=== PATIENT | female | born 1940 | race Caucasian/White ===

== ENCOUNTER 2017-06-09 14:52 | Emergency (ER) | payer OTHER, MEDICARE ==
[2017-06-09 16:01] LABS: Absolute Lymphocytes (CBC) 0.5 K/uL (0.7-4.9); Absolute Monocytes 0.1 K/uL (0.1-1.3); Absolute Neutrophil 3.3 K/uL (1.8-8.0); Basophils % 0.1 % (0-1.3); Eosinophils % 1.7 % (0-4.4); Hematocrit 44.8 % (36.0-45.0); Lymphocytes % 13.3 % (15.3-44.8); MCH 31.7 pg (27.0-35.0); MCV 94.6 fL (80-100); MPV 10.2 fL (7.6-11.3); RBC Red Blood Cell Count 4.73 M/uL (3.86-4.86)
--- NOTE | 2017-06-09 16:01 | RAD REPORT ---
EXAM DESCRIPTION: RAD - Chest Single View - 06/09/2017 3:52 pm CLINICAL HISTORY: Chest pain. COMPARISON: 12/09/2013 FINDINGS: Portable technique limits examination quality. The lungs are grossly clear. The heart is upper limit of normal in size. No displaced fractures. IMPRESSION: No acute intrathoracic process suspected.
[2017-06-09 16:13] LABS: Protime INR 0.99
[2017-06-09 16:18] LABS: Potassium 4.2 mEq/L (3.6-5.0)
[2017-06-09 16:24] LABS: Albumin 4.1 g/dL (3.2-5.5); Bilirubin Direct 0.1 mg/dL (0-0.2); Bilirubin Total 0.7 mg/dL (0.3-1.2); Magnesium 1.9 mg/dL (1.8-2.5); Protein, Total 8.3 g/dL (6.0-8.3)
[2017-06-09 16:54] LABS: Thyroid Stimulating Hormone 1.56 uIU/mL (0.34-5.60)
--- NOTE | 2017-06-09 17:25 | EDPHYS ---
Physician Documentation [facility] Name: Radha Villegas Age: 76 yrs Sex: Female : 1940 Arrival Date: 06/09/2017 Time: 14:54 Bed 3 Private MD: ED Physician Yash Mcfarlane HPI: 06/09 16:19 This 76 yrs old Female presents to ER via Ambulatory with complaints of jr8 Bradycardia. 16:19 Patient was being seen by dentist today for chipped tooth. Noted that HR was in the jr8 30s. Was told to f/u with PCP. Had called her physician who told her to go to ED. Patient asymptomatic. Denies n/v, dizziness, fatigue, shortness of breath, chest pain, exertional dyspnea, near syncope, or syncope. Onset: The symptoms/episode began/occurred at an unknown time. Severity of symptoms: At their worst the symptoms were very mild in the emergency department the symptoms are unchanged. It is unknown whether or not the patient has had similar symptoms in the past. The patient has not recently seen a physician. Historical: - Allergies: 14:57 silver; tw2 - Home Meds: 14:57 Bystolic 10 mg oral tab 1 tab once daily [Active]; Xeljanz 5 mg oral tab 1 tab [Active];tw2 15:00 aspirin 81 mg Oral chew 1 tab once daily [Active]; Vitamin D Oral [Active]; Vitamin tw2 B-12 2,000 mcg Oral TbER [Active]; - PMHx: 14:57 anal cancer; Hypertension; tw2 - PSHx: 14:57 None; tw2 - Immunization history:: Adult Immunizations up to date. - Social history:: Smoking status: Patient/guardian denies using tobacco. ROS: 16:19 Eyes: Negative for injury, pain, redness, and discharge, ENT: Negative for injury, jr8 pain, and discharge, Neck: Negative for injury, pain, and swelling, Cardiovascular: Negative for chest pain, palpitations, and edema, Respiratory: Negative for shortness of breath, cough, wheezing, and pleuritic chest pain, Abdomen/GI: Negative for abdominal pain, nausea, vomiting, diarrhea, and constipation, Back: Negative for injury and pain, MS/Extremity: Negative for injury and deformity, Skin: Negative for injury, rash, and discoloration, Neuro: Negative for headache, weakness, numbness, tingling, and seizure. Exam: 16:19 Eyes: Pupils equal round and reactive to light, extra-ocular motions intact. Lids and jr8 lashes normal. Conjunctiva and sclera are non-icteric and not injected. Cornea within normal limits. Periorbital areas with no swelling, redness, or edema. ENT: Nares patent. No nasal discharge, no septal abnormalities noted. Tympanic membranes are normal and external auditory canals are clear. Oropharynx with no redness, swelling, or masses, exudates, or evidence of obstruction, uvula midline. Mucous membranes moist. Neck: Trachea midline, no thyromegaly or masses palpated, and no cervical lymphadenopathy. Supple, full range of motion without nuchal rigidity, or vertebral point tenderness. No Meningismus. Chest/axilla: Normal chest wall appearance and motion. Nontender with no deformity. No lesions are appreciated. Respiratory: Lungs have equal breath sounds bilaterally, clear to auscultation and percussion. No rales, rhonchi or wheezes noted. No increased work of breathing, no retractions or nasal flaring. Abdomen/GI: Soft, non-tender, with normal bowel sounds. No distension or tympany. No guarding or rebound. No evidence of tenderness throughout. Back: No spinal tenderness. No costovertebral tenderness. Full range of motion. Skin: Warm, dry with normal turgor. Normal color with no rashes, no lesions, and no evidence of cellulitis. MS/ Extremity: Pulses equal, no cyanosis. Neurovascular intact. Full, normal range of motion. Neuro: Awake and alert, GCS 15, oriented to person, place, time, and situation. Cranial nerves II-XII grossly intact. Motor strength 5/5 in all extremities. Sensory grossly intact. Cerebellar exam normal. Normal gait. 16:19 Cardiovascular: Rate: bradycardic, Rhythm: regular, Pulses: Pulses are 2+ in right radial artery, right dorsalis pedis artery, left radial artery and left dorsalis pedis artery. Heart sounds: normal, normal S1and S2, no S3 or S4, no murmur, no rub, no gallop, Edema: is not appreciated, JVD: is not appreciated. Vital Signs: 14:55 BP 151 / 86; Pulse 32; Resp 16; Temp 97.5(TE); Pulse Ox 98% on R/A; Weight 50.8 kg (R); tw2 Height 5 ft. 4 in. (162.56 cm); Pain 0/10; 16:01 BP 127 / 72; Pulse 52; Resp 16; Pulse Ox 99% on R/A; aj 17:16 BP 162 / 79; Pulse 58; Resp 18; Pulse Ox 100% on R/A; aj 14:55 Body Mass Index 19.22 (50.80 kg, 162.56 cm) tw2 MDM: 15:07 Patient medically screened. jr8 17:22 Data reviewed: vital signs, nurses notes, lab test result(s), EKG, radiologic studies, jr8 plain films, and as a result, I will discharge patient. Data interpreted: Pulse oximetry: on room air is 100 %. Interpretation: normal. Counseling: I had a detailed discussion with the patient and/or guardian regarding: the historical points, exam findings, and any diagnostic results supporting the discharge/admit diagnosis, lab results, radiology results, the need for outpatient follow up, a agricultural research technician, to return to the emergency department if symptoms worsen or persist or if there are any questions or concerns that arise at home. ED course: Patient remains asymptomatic. Will refer to cardiology for further evaluation of bigeminy. If she becomes symptomatic to come back to ED for evaluation . 17:26 ED course: Patient was suppose to start on Trazodone for sleep. Explained to patient jr8 that she should NOT start that medicine until cleared by agricultural research technician due to its potential side effects . 06/09 15:28 Order name: Basic Metabolic Panel; Complete Time: 17:02 06/09 15:28 Order name: BNP; Complete Time: 16:28 06/09 15:28 Order name: CBC with Diff; Complete Time: 16:13 06/09 15:28 Order name: LFT's; Complete Time: 17:02 06/09 15:28 Order name: Magnesium; Complete Time: 17:02 06/09 15:28 Order name: PT-INR; Complete Time: 16:21 06/09 15:28 Order name: Ptt, Activated; Complete Time: 16:21 06/09 15:28 Order name: Troponin (emerg Dept Use Only); Complete Time: 16:23 06/09 15:28 Order name: XRAY Chest (1 view); Complete Time: 16:13 06/09 15:28 Order name: EKG; Complete Time: 15:28 [facility] 06/09 15:28 Order name: TSH; Complete Time: 17:06/09 15:28 Order name: T4 Free; Complete Time: 17: 06/09 17:15 Order name: EKG Electrocardiogram [facility] 06/09 17:45 Order name: Urine Dipstick--Ancillary (enter results) 06/09 15:28 Order name: Cardiac monitoring; Complete Time: 17:18 [facility] 06/09 15:28 Order name: EKG - Nurse/Tech; Complete Time: 17: 06/09 15:28 Order name: IV Saline Lock; Complete Time: 17:18 06/09 15:28 Order name: Labs collected and sent; Complete Time: 17: [facility] 06/09 15:28 Order name: O2 Per Protocol; Complete Time: 17: 06/09 15:28 Order name: O2 Sat Monitoring; Complete Time: 17:06/09 15:28 Order name: Urine Dipstick-Ancillary (obtain specimen); Complete Time: 17:18 Administered Medications: No medications were administered Disposition: 18:10 Co-signature as Attending Physician, Yash Mcfarlane MD. rn Disposition: 06/09/17 17:24 Discharged to Home. Impression: Cardiac arrhythmia, unspecified - Asymptomatic Bigeminy . - Condition is Stable. - Discharge Instructions: Bradycardia, Palpitations. - Medication Reconciliation Form, Thank You Letter, Antibiotic Education, Prescription Opioid Use form. - Follow up: Georges Rios MD; When: 2 - 3 days; Reason: Recheck today's complaints, Continuance of care, Re-evaluation by your physician. - Problem is new. - Symptoms have improved. Signatures: Dispatcher [employer] EDTaina Zhong, RN Yash Benjamin MD MD rn Roszak, Josh, PA PA jr8 Jodie Paulson Tara, RN RN tw2
--- NOTE | 2017-06-09 17:25 | ER ---
Nurse's Notes [facility] Name: Radha Villegas Age: 76 yrs Sex: Female : 1940 Arrival Date: 06/09/2017 Time: 14:54 Bed 3 Private MD: Diagnosis: Cardiac arrhythmia, unspecified-Asymptomatic Bigeminy Presentation: 06/09 14:54 Presenting complaint: Patient states: i went to the dentist this morning and he said my tw2 pulse was in the 30's, i dont feel bad. Transition of care: patient was not received from another setting of care. Onset of symptoms was June 09, 2017. Initial Sepsis Screen: Does the patient meet any 2 criteria? No. Patient's initial sepsis screen is negative. Does the patient have a suspected source of infection? No. Patient's initial sepsis screen is negative. 14:54 Method Of Arrival: Ambulatory tw2 14:54 Acuity: JAYSHREE 2 iw 17:33 Care prior to arrival: None. aj Historical: - Allergies: 14:57 silver; tw2 - Home Meds: 14:57 Bystolic 10 mg oral tab 1 tab once daily [Active]; Xeljanz 5 mg oral tab 1 tab [Active];tw2 15:00 aspirin 81 mg Oral chew 1 tab once daily [Active]; Vitamin D Oral [Active]; Vitamin tw2 B-12 2,000 mcg Oral TbER [Active]; - PMHx: 14:57 anal cancer; Hypertension; tw2 - PSHx: 14:57 None; tw2 - Immunization history:: Adult Immunizations up to date. - Social history:: Smoking status: Patient/guardian denies using tobacco. Screenin:03 Abuse screen: Denies threats or abuse. Denies injuries from another. Nutritional aj screening: No deficits noted. Tuberculosis screening: No symptoms or risk factors identified. Fall Risk None identified. Assessment: 16:01 General: Appears in no apparent distress. comfortable, Behavior is calm, cooperative, aj appropriate for age. Pain: Denies pain. Neuro: Level of Consciousness is awake, alert, obeys commands, Oriented to person, place, time, situation, Appropriate for age. Cardiovascular: Denies chest pain, Capillary refill < 3 seconds in bilateral fingers Patient's skin is warm and dry. Rhythm is sinus bradycardia. Respiratory: Airway is patent Respiratory effort is even, unlabored, Respiratory pattern is regular, symmetrical. Derm: Skin is intact, is healthy with good turgor, Skin is pink, warm \T\ dry. normal. 17:17 Reassessment: Patient appears in no apparent distress at this time. No changes from aj previously documented assessment. Patient and/or family updated on plan of care and expected duration. Pain level reassessed. Patient is alert, oriented x 3, equal unlabored respirations, skin warm/dry/pink. Patient denies pain at this time. Vital Signs: 14:55 BP 151 / 86; Pulse 32; Resp 16; Temp 97.5(TE); Pulse Ox 98% on R/A; Weight 50.8 kg (R); tw2 Height 5 ft. 4 in. (162.56 cm); Pain 0/10; 16:01 BP 127 / 72; Pulse 52; Resp 16; Pulse Ox 99% on R/A; aj 17:16 BP 162 / 79; Pulse 58; Resp 18; Pulse Ox 100% on R/A; aj 14:55 Body Mass Index 19.22 (50.80 kg, 162.56 cm) tw2 ED Course: 14:54 Patient arrived in ED. tw3 14:55 Triage completed. tw2 14:56 Arm band placed on. tw2 15:07 Iggy Ramirez PA is PHCP. jr8 15:07 Yash Mcfarlane MD is Attending Physician. jr8 15:32 EKG done, by technical services librarian. at1 15:37 Taina Adams, RN is Primary Nurse. aj 15:40 Inserted saline lock: 20 gauge in right antecubital area, using aseptic technique. aj Blood collected. 15:50 X-ray completed. Portable x-ray completed in exam room. Patient tolerated procedure bb2 well. 15:51 XRAY Chest (1 view) In Process Unspecified. EDMS 17:23 Georges Rios MD is Referral Physician. jr8 17:30 Patient has correct armband on for positive identification. aj 17:30 No provider procedures requiring assistance completed. aj 17:31 IV discontinued, intact, bleeding controlled, No redness/swelling at site. Pressure aj dressing applied. 17:43 Primary Nurse role handed off by Taina Adams, RN ag Administered Medications: No medications were administered Outcome: 17:24 Discharge ordered by . jr8 17:31 Discharged to home ambulatory. aj 17:31 Condition: good 17:31 Discharge instructions given to patient, Instructed on discharge instructions, follow up and referral plans. Demonstrated understanding of instructions, follow-up care. 17:33 Patient left the ED. aj 17:45 Patient left the ED. ag Signatures: Dispatcher [employer] EDTaina Zhong, RN RN Princess Trinidad RN RN Iggy Alcala PA PA jr8 Taina calvin, employment counselor EKG Tat1 Jodie Paulson Tara, RN RN tw2 Stiven, Araceli tw3 Crys Bolden bb2 Corrections: (The following items were deleted from the chart) 15:14 14:54 Acuity: JAYSHREE 3 tw2 iw
[2017-06-09 17:38] VITALS: TEMP 97.5
[2017-06-09 17:41] VITALS: BP 162/79; O2SAT 100
[2017-06-09 18:07] LABS: Urine Blood TRACE (NEG); Urine Glucose NEGATIVE (NEG); Urine Protein NEGATIVE (NEG)
--- NOTE | 2017-06-10 06:56 | EKG ---
Test Date: 2017-06-09 Test Time: 15:23:17 Supervisor Graphite: SANGITA MEASUREMENT RESULTS: Intervals: Rate: 63 AZ: 110 QRSD: 82 QT: 418 QTc: 427 [place]: P: 64 AZ: 110 QRS: 99 T: 38 INTERPRETIVE STATEMENTS: Sinus rhythm with frequent premature ventricular complexes in a pattern of bigeminy Possible Left atrial enlargement Rightward axis Borderline ECG Compared to ECG 06/09/2017 15:03:29 Ventricular premature complex(es) now present Sinus bradycardia no longer present Atrial premature complex(es) no longer present Electronically Signed On 06-10-17 06:55:13 CDT by Georges Rios
--- NOTE | 2017-06-10 06:58 | EKG ---
Test Date: 2017-06-09 Test Time: 15:03:29 Opener Tender: MARI MEASUREMENT RESULTS: Intervals: Rate: 53 UT: 138 QRSD: 82 QT: 428 QTc: 401 [place]: P: 68 UT: 138 QRS: 69 T: 37 INTERPRETIVE STATEMENTS: Sinus bradycardia with premature ventricular complexes Possible Left atrial enlargement Borderline ECG Compared to ECG 12/08/2013 18:50:35 Sinus rhythm no longer present Electronically Signed On 06-10-17 06:57:24 CDT by Georges Rios
== END 2017-06-09 17:45 | disposition home or self-care (01) ==
LOC: ER 14:52
DX: I49.8 Other specified cardiac arrhythmias (principal); I10 Essential (primary) hypertension; Z85.048 Personal history of other malignant neoplasm of rectum, rectosigmoid junction, and anus; Z79.82 Long term (current) use of aspirin; Z91.048 Other nonmedicinal substance allergy status
CPT/HCPCS: 36415; 71045; 80048; 80076; 81003; 83735; 83880; 84439; 84443; 84484; 85025; 85610; 85730; 93005; 99284

== ENCOUNTER 2017-10-28 06:56 | Day surgery (SDC) | payer OTHER, MEDICARE ==
[2017-10-28] MEDS ORDERED: Ringers Lactate 1,000 ML IV ONE (07:29)
--- OUTSIDE RECORDS SUMMARY | 2017-10-28 08:24 | XMS REPORT | Clinical Summary ---
:1940 Author Organization [facility] Address [address] [place] [address] Care Team Providers Name Role Phone Barbara Montes MD Primary Care Provider Allergies Active Allergy Reactions Severity Noted Date Comments Adhesive 11/01/2015 Belladonna 11/01/2015 Belladonna Alkaloids 04/18/2015 Neuromuscular Blockers, 11/01/2015 Steroidal Mirtazapine Other (See Comments) Low 08/12/2017 Unable to sleep, total insomnia. Infliximab Other (See Comments) 04/18/2015 Other reaction(s): Other (See Comments) Possible cause of erythema mulitforme Possible cause of erythema mulitforme Current Medications Prescription Sig. Disp. Refills Start Date End Date Status clonIDINE 3 01/22/2015 Active (CATAPRES) 0.1 MG tablet BYSTOLIC 10 mg 6 03/29/2015 Active tablet melatonin 5 mg Take by mouth. Active tablet tofacitinib Take by mouth. Active (XELJANZ) 5 mg tablet cyanocobalamin, Take by mouth. Active vitamin B-12, 2,500 mcg tablet vitamin D3-folic Take by mouth. Active acid 500 unit- 1 mg tablet aspirin (ECOTRIN) Take 81 mg by Active 81 MG enteric mouth daily. coated tablet traZODone 1-2 po hs prn 60 tablet 1 06/10/2017 Active (DESYREL) 50 MG insomnia tablet mirtazapine 1-2 po hs prn 30 tablet 0 07/02/2017 Active (REMERON) 15 MG insomnia. tabletIndications: Chronic insomnia LORAZepam (ATIVAN) TK 1 T PO QD 2 06/23/2017 Active 0.5 MG tablet PRA oseltamivir Take 1 capsule 10 capsule 0 03/19/2017 03/24/2017 (TAMIFLU) 75 MG (75 mg total) capsuleIndications by mouth 2 : Type A influenza (two) times a day for 5 days. traZODone Take 1 tablet 30 tablet 3 03/19/2017 04/18/2017 (DESYREL) 50 MG (50 mg total) tabletIndications: by mouth Chronic insomnia nightly for 30 days. benzonatate Take 1 capsule 50 capsule 1 03/19/2017 03/29/2017 (TESSALON) 200 MG (200 mg total) capsuleIndications by mouth 3 : Type A influenza (three) times a day as needed for cough for up to 10 days. zolpidem (AMBIEN) Take 5 mg by 08/12/2017 Discontinued 5 MG tablet mouth nightly as needed for sleep. traZODone Take 50 mg by 07/23/2017 Discontinued (DESYREL) 50 MG mouth nightly. tablet traZODone Take 2 tablets 60 tablet 2 07/23/2017 08/22/2017 (DESYREL) 150 MG (300 mg total) tablet by mouth nightly for 30 days. zolpidem (AMBIEN) Take 1 tablet 30 tablet 5 08/12/2017 09/11/2017 5 MG (5 mg total) tabletIndications: by mouth Chronic insomnia, nightly as Sleep deprivation needed for sleep for up to 30 days. Active Problems Problem Noted Date Primary malignant neoplasm of anus 06/18/2015 Rheumatoid arthritis 06/18/2015 Insomnia 04/20/2015 Recurrent anxiety 04/18/2015 Chronic anxiety 04/18/2015 Hypertensive disorder 04/18/2015 Irregular heart beat 04/18/2015 Acute pharyngitis 04/18/2015 Mycoplasma pneumonia 04/18/2015 Influenza with respiratory manifestation other than pneumonia 04/18/2015 Palpitations 04/18/2015 Abnormal mammogram 04/18/2015 Atrophic vaginitis 04/24/2011 Malignant neoplasm of gastrointestinal tract 04/24/2011 Encounter for screening mammogram for malignant neoplasm of breast 03/31/2011 Encounters Date Type Specialty Care Team Description 09/21/2017 Telephone Neurosurgery Kristyn Ambrose MA 09/18/2017 Telephone Neurosurgery Kristyn Ambrose MA 09/16/2017 Orders Only Family Medicine Barbara Montes MD cancer screening using DNA-based stool test (Primary Dx) 09/10/2017 Telephone Family Medicine Barbara Montes MD 09/10/2017 Orders Only Internal Medicine Sofia Aguirre MA History of anal cancer 09/02/2017 Telephone Family Barbara Salgado MD 08/26/2017 Office Visit Internal Medicine Barbara Montes Annual physical exam MD Tong (Primary Dx) 08/26/2017 Orders Only Family Medicine Barbara Montes Encounter for long -term (current) use of medications (Primary Dx); MD Marshal Fortune arthritis mult site w involv of organs and systems 08/12/2017 Office Visit Internal Medicine Barbara Montes Chronic insomnia (Primary Dx); MD Tong Sleep deprivation; History of anal cancer 08/03/2017 Telephone Internal Medicine Barbara Montes MD 07/23/2017 Refill Internal Medicine Akiko Corey, HOME AID 07/09/2017 Orders Only Internal Medicine Bakari Sheridan MD 07/02/2017 Office Visit Internal Medicine Barbara Montes Chronic insomnia (Primary Dx); MD Tong Bradykinesia; Weight loss 07/02/2017 Telephone Internal Medicine Barbara Montes MD 07/01/2017 Telephone Internal Medicine Barbara Montes MD 06/09/2017 Telephone Family Medicine David Jimenez, HOME AID 06/09/2017 Refill Internal Medicine Barbara Montes MD 06/08/2017 Office Visit Internal Medicine Barbara Montes Chronic insomnia (Primary Dx); MD Tong Unintended weight loss; Diarrhea, unspecified type 03/20/2017 Telephone Family Barbara Salgado MD 03/19/2017 Office Visit Internal Medicine Barbara Montes Type A influenza (Primary Dx); MD Tong Fever, unspecified fever cause; Chronic insomnia 03/19/2017 Telephone Family Medicine Barbara Montes MD after 10/27/2016 Immunizations Name Dates Previously Given Next Due FLUZONE HIGH-DOSE PF 12/05/2016, 11/23/2014, 12/17/2012 Pneumococcal Conjugate 13-Valent 01/01/2015 Family History Medical History Relation Name Comments Atrial fibrillation Father COPD Mother of lung cancer Lung cancer Mother Hypertension Sister Relation Name Status Comments Father Mother Sister Social History Tobacco Use Types Packs/Day Years Used Date Former Smoker Smokeless Tobacco: Never Used Tobacco Cessation: Counseling Given: No Alcohol Use Drinks/Week oz/Week Comments Yes Sex Assigned at Date Recorded Not on file Last Filed Vital Signs Vital Sign Reading Time Taken Blood Pressure 140/57 08/26/2017 3:11 PM CDT Pulse 45 08/26/2017 3:11 PM CDT Temperature 36.5 C (97.7 F) 08/26/2017 3:11 PM CDT Respiratory Rate 18 08/26/2017 3:11 PM CDT Oxygen Saturation 99% 08/26/2017 3:11 PM CDT Inhaled Oxygen Concentration - - Weight 50.8 kg (112 lb) 08/26/2017 3:11 PM CDT Height 160 cm (5' 3") 08/26/2017 3:11 PM CDT Body Mass Index 19.84 08/26/2017 3:11 PM CDT Plan of Treatment Health Maintenance Due Date Last Done Comments ZOSTER VACCINE 2002 PNEUMOCOCCAL POLYSACCHARIDE 06/26/2007 VACCINE AGE 65 AND OVER BREAST CANCER SCREENING 04/17/2017 04/18/2015 INFLUENZA VACCINE 09/16/2017 12/05/2016, 11/23/2014, 12/17/2012 SHINGRIX VACCINE (#1) 08/26/2018 Postponed from 1992 (Patient Ill Today) COLON CANCER SCREENING 09/03/2025 09/04/2015, 02/16/2002 PNEUMOCOCCAL-13 Completed 01/01/2015 Procedures Procedure Name Priority Date/Time Associated Diagnosis Comments IP CONSULT TO Routine 07/09/2017 12:00 RHEUMATOLOGY AM CDT CLOSTRIDIUM DIFFICILE Routine 06/16/2017 2:32 Diarrhea, Results for this TOXIN PM CDT unspecified type procedure are in the results section. STOOL CULTURE Routine 06/16/2017 2:32 Diarrhea, Results for this PM CDT unspecified type procedure are in the results section. OVA & PARASITES, Routine 06/16/2017 2:32 Diarrhea, Results for this CONCENTRATED PM CDT unspecified type procedure are in EXAMINATION the results section. FECAL LEUKOCYTES Routine 06/16/2017 2:32 Diarrhea, Results for this SMEAR PM CDT unspecified type procedure are in the results section. ECG 12-LEAD Routine 06/09/2017 12:00 AM CDT XR CHEST 1 VW Routine 06/09/2017 12:00 AM CDT POCT INFLUENZA A/B Routine 03/19/2017 3:19 Fever, unspecified Results for this PM AGILE SCRUM COACH fever cause procedure are in the results section. after 10/27/2016 Results Consult Rheumatology (07/09/2017) Narrative Performed At Ova & parasites, concentrated examination (06/16/2017 2:32 PM) Ova & parasites concentrated No ova, cysts, or parasites seen. [facility] exam . One negative specimen does not rule out the possibility of a parasitic infection. Comment: These results were obtained using wet preparation(s) and trichrome stained smear. This test does not include testing for Cryptosporidium parvum, Cyclospora, or Microsporidia. Specimen Stool Narrative Performed At Performed at:[address] [place], [place] [id number] Court Interpreter: Rufino Benton MD, Phone:[phone] Performing Organization Address [facility] [place] [facility] Fecal leukocytes smear (06/16/2017 2:32 PM) Fecal leukocytes No white blood cells seen. None Seen [facility] Specimen Stool Narrative Performed At Performed at:[address] [place], [place] [id number] [address] Interpreter: Rufino Benton MD, Phone:[phone] Performing Organization Address [facility] [place] Phone Number [facility] C difficile toxin (06/16/2017 2:32 PM) C difficile toxin gene NARAYAN Negative Negative [facility] Specimen Stool Narrative Performed At Performed at:[address] [place], [place] [id number] Interpreter: Rufino Benton MD, Phone:[phone] Performing Organization Address [facility] [place] Phone Number [facility] Stool culture (06/16/2017 2:32 PM) Salmonella/shigella culture No Salmonella or Shigella [facility] isolate recovered. Campylobacter culture isolate No Campylobacter species [facility] isolated. Specimen Stool Narrative Performed At Performed at:[address] [place], [place] [id number] [address] Interpreter: Rufino Benton MD, Phone:[phone] Performing Organization Address City/State/Zipcode Phone Number [facility] XR Chest 1 Vw (06/09/2017) Narrative Performed At ECG 12 lead (06/09/2017) Narrative Performed At POC Influenza A/B (03/19/2017 3:19 PM) Rapid Influenza A Ag + Rapid Influenza B Ag - Specimen Swab after 10/27/2016 Insurance Payer Benefit Plan / Group Subscriber ID Type Phone Address MEDICARE MEDICARE PART A AND B xxxxxxxxxx Medicare [place], [place] AARP AARP SUPPLEMENT xxxxxxxxx-xx Commercial [phone] [facility] [address] [place] [address]
[2017-10-28] MEDS ORDERED: PROPOFOL 200 MG/20 ML VIAL IV ONE (09:17)
[2017-10-28] MEDS ORDERED: LIDOCAINE 1% MPF 2 ML AMPULE ONE (09:17)
--- NOTE | 2017-10-28 09:41 | ENDO RPT ---
[address], [address] COLONOSCOPY PROCEDURE REPORT EXAM DATE: 10/28/2017 PATIENT NAME: Radha Villegas MR #: [id number] BIRTHDATE: 1940 ATTENDING: Alberto Baez Dr STATUS: outpatient PUBLIC HEALTH ANALYST: Anne-Marie Morton and Yolette Child RN INDICATIONS: The patient is a 77 yr old Female here for a colonoscopy due to positive Cologuard, change in bowel habits (thought due to medication side effect) and history of rectal cancer PROCEDURE PERFORMED: Colonoscopy MEDICATIONS: Per Anesthesia. ESTIMATED BLOOD LOSS: None CONSENT: The patient understands the risks and benefits of the procedure and understands that these risks include, but are not limited to: sedation, allergic reaction, infection, perforation and/or bleeding. Alternative means of evaluation and treatment include, among others: physical exam, x-rays, and/or surgical intervention. The patient elects to proceed with this endoscopic procedure. DESCRIPTION OF PROCEDURE: During intra-op preparation period all mechanical medical equipment was checked for proper function. Hand hygiene and appropriate measures for infection prevention was taken. Procedure, possible complications, alternatives including, but not limited to possibility of bleeding, perforation, tear, infection, sepsis, need for surgery, need for blood transfusion, were explained to the patient. After the risks, benefits and alternatives of the procedure were thoroughly explained, Informed consent was verified, confirmed and timeout was successfully executed by the treatment team. The patient was placed in the left lateral position. A digital rectal exam was performed and revealed external hemorrhoids and A digital rectal exam was performed and revealed several skin tags. After appropriate level of anesthesia, the scope was passed. The [id number] ([id number]) endoscope was introduced through the anus and advanced to the cecum, which was identified by both the appendix and ileocecal valve. The quality of the prep was good. The instrument was then slowly withdrawn as the colon was fully examined. Scope withdrawal time was 7 minutes. COLON FINDINGS: Small internal and external hemorrhoids were found. Retroflexion was not performed. The scope was then completely withdrawn from the patient and the procedure terminated. ADVERSE EVENTS: There were no complications. IMPRESSIONS: 1. Small internal and external hemorrhoids 2. Intubation to cecum 3. History of rectal cancer RECOMMENDATIONS: fiber rich diet RECALL: Return in 3 year(s) for Colonoscopy. Alberto Baez Dr eSigned: Alberto Baez Dr 10/28/2017 9:41 AM cc: CPT CODES: ICD9 CODES: 1. 455.5 External hemorrhoids with other complication 2. 455.9 Residual hemorrhoidal skin tags PATIENT NAME: Radha Villegas MR#: [id number]
[2017-10-28 10:03] VITALS: TEMP 97
[2017-10-28 10:05] VITALS: BP 110/68; O2SAT 99
== END 2017-10-28 10:20 | disposition home or self-care (01) ==
LOC: OR 06:56
PROVIDERS: ATTEND Internal Medicine Gastroenterology
PROC: 0DJD8ZZ Inspection of Lower Intestinal Tract, Via Natural or Artificial Opening Endoscopic (ICD-10-PCS; principal; 2017-10-28 10:00)
DX: Z85.048 Personal history of other malignant neoplasm of rectum, rectosigmoid junction, and anus (principal); K64.8 Other hemorrhoids; K64.4 Residual hemorrhoidal skin tags; I10 Essential (primary) hypertension; K21.9 Gastro-esophageal reflux disease without esophagitis; E11.9 Type 2 diabetes mellitus without complications; Z87.891 Personal history of nicotine dependence; Z80.1 Family history of malignant neoplasm of trachea, bronchus and lung
CPT/HCPCS: 45378; J2001